=== PATIENT | male | born 1985 | race Caucasian/White ===

== ENCOUNTER → 2024-06-02 12:26 | Outpatient (CLI) | payer OTHER, SELFPAY ==
--- NOTE | 2024-06-02 12:28 | DI.RAD.S_ITS ---
PROCEDURE: XR CHEST 2V INDICATIONS: RLL/RML PNA on exam 3wk cough TECHNIQUE: 2 views of the chest were acquired. COMPARISON: None. FINDINGS: Surgical changes and devices: None. Lungs and pleura: Lungs are clear on the left but within the right mid lung just above the minor fissure mild alveolar infiltration can be seen. This appears anterior on the lateral view.. No pleural effusions or pneumothorax. Mediastinum: Mediastinal contours are normal. Heart size is normal. Bones and chest wall: No suspicious bony abnormalities. Soft tissues appear unremarkable. IMPRESSION: Mild pneumonia anterior right upper lobe. A comparison prior chest plain film may exist but is not available for review at this time. No pleural effusion is seen. Dictated by: Miguel Fischer M.D. on 06/02/2024 at 13:01 Approved by: Miguel Fischer M.D. on 06/02/2024 at 13:02
== END ==
PROVIDERS: Referring Provider Student in an Organized Health Care Education/Training Program; Visit Provider Student in an Organized Health Care Education/Training Program
DX: J18.9 Pneumonia, unspecified organism (principal); J40 Bronchitis, not specified as acute or chronic
CPT/HCPCS: 71046